=== PATIENT | female | born 1995 | race Hispanic/Latino ===

== ENCOUNTER 2020-10-31 14:21 | Outpatient (CLI) | payer OTHER | END 2020-10-31 14:22 | disposition home or self-care (01) | LOC: BICCT 14:21 | PROVIDERS: ATTEND Family Medicine | DX: G40.209 Localization-related (focal) (partial) symptomatic epilepsy and epileptic syndromes with complex partial seizures, not intractable, without status epilepticus (principal) | CPT/HCPCS: 70450 ==

== ENCOUNTER 2020-11-13 17:30 | Outpatient (CLI) | payer OTHER | END 2020-11-13 17:31 | disposition home or self-care (01) | LOC: SLEEPLAB 17:30 | PROVIDERS: ATTEND Family Medicine | DX: G47.33 Obstructive sleep apnea (adult) (pediatric) (principal); R53.83 Other fatigue; G31.84 Mild cognitive impairment of uncertain or unknown etiology; K21.9 Gastro-esophageal reflux disease without esophagitis; G47.00 Insomnia, unspecified; E66.9 Obesity, unspecified; Z68.38 Body mass index [BMI] 38.0-38.9, adult | CPT/HCPCS: 95806 ==

== ENCOUNTER 2020-11-19 07:27 | Outpatient (CLI) | payer OTHER | END 2020-11-19 07:28 | disposition home or self-care (01) | LOC: BICULT 07:27 | PROVIDERS: ATTEND Family Medicine | DX: R74.01 Elevation of levels of liver transaminase levels (principal); K76.0 Fatty (change of) liver, not elsewhere classified; K82.8 Other specified diseases of gallbladder | CPT/HCPCS: 76700 ==

== ENCOUNTER 2021-01-25 12:36 | Outpatient (CLI) | payer OTHER | END 2021-01-25 12:37 | disposition home or self-care (01) | LOC: SCSMRI 12:36 | PROVIDERS: ATTEND Nurse Practitioner Acute Care | DX: M79.602 Pain in left arm (principal); M43.9 Deforming dorsopathy, unspecified | CPT/HCPCS: 72156 ==

== ENCOUNTER 2021-08-22 14:59 | Outpatient (CLI) | payer BC | END 2021-08-22 15:00 | disposition home or self-care (01) | LOC: BICMRI 14:59 → SCSMRI 15:00 | PROVIDERS: ATTEND Family Medicine | DX: M24.9 Joint derangement, unspecified (principal) ==

== ENCOUNTER 2021-09-26 12:23 | Outpatient (CLI) | payer BC ==
[~2021-09-26 12:23] MED LIST: Magnevist 469MG/ML 20 ML VIAL ONE
== END 2021-09-26 12:24 | disposition home or self-care (01) ==
LOC: MRI 12:23
PROVIDERS: ATTEND Psychiatry & Neurology Neurology
DX: G43.009 Migraine without aura, not intractable, without status migrainosus (principal); R56.9 Unspecified convulsions; R94.01 Abnormal electroencephalogram [EEG]
CPT/HCPCS: 70553; 95816; 95957; A9579

== ENCOUNTER 2021-12-23 09:33 | Outpatient (CLI) | payer BC ==
[2021-12-23] MEDS ORDERED: Lidocaine 1% PF 5 ML VIAL ONE (10:00)
[2021-12-23] MEDS ORDERED: Gadobenate Dimeglumine 529 MG/1 ML (20ML VIAL) ONE (10:00)
[2021-12-23] MEDS ORDERED: Iopamidol 300 61% 50 ML VIAL FS ONE (10:00)
[2021-12-23] MEDS ORDERED: EPINEPHrine 1 MG/ML VIAL ONE (10:00)
== END 2021-12-23 09:34 | disposition home or self-care (01) ==
LOC: RAD 09:33
PROVIDERS: ATTEND Family Medicine Sports Medicine
DX: M25.511 Pain in right shoulder (principal)
CPT/HCPCS: 23350; A9577; J0171; Q9967

== ENCOUNTER 2022-01-13 12:26 | Outpatient (CLI) | payer BC | END 2022-01-13 12:27 | disposition home or self-care (01) | LOC: EEG 12:26 | PROVIDERS: ATTEND Psychiatry & Neurology Neurology | DX: G40.209 Localization-related (focal) (partial) symptomatic epilepsy and epileptic syndromes with complex partial seizures, not intractable, without status epilepticus (principal) | CPT/HCPCS: 95816; 95957 ==

== ENCOUNTER 2022-10-09 09:08 | Outpatient (CLI) | payer BC | END 2022-10-09 09:09 | disposition home or self-care (01) | LOC: SCSMRI 09:08 | PROVIDERS: ATTEND Surgery Surgery of the Hand | DX: M51.16 Intervertebral disc disorders with radiculopathy, lumbar region (principal); M47.26 Other spondylosis with radiculopathy, lumbar region; M67.431 Ganglion, right wrist | CPT/HCPCS: 72148 ==

== ENCOUNTER 2022-11-12 15:29 | Outpatient (CLI) | payer BC ==
[2022-11-12 16:42] LABS: Pregnancy Test - Urine (BHCG) Negative (Negative); Pregu Control Background? CLEAR/WHITE (CLR/WHITE); Pregu Control Bar Appear? YES (CONTROL BAR); Specific Gravity 1.015 (1.002-1.036)
[2022-11-12 16:56] LABS: Anion Gap 11 mmol/L (10-20); BUN (Urea Nitrogen) 9 mg/dL (7.0-18.7); Calc. Creatinine Clearance 0 mL/min (70-130); Calcium 9.6 mg/dL (7.8-10.44); Carbon Dioxide 23 mmol/L (22-29); Chloride 109 mmol/L (98-107); Estimated GFR 107; Glucose 90 mg/dL (70-105); Potassium 4.2 mmol/L (3.5-5.1); Sodium 139 mmol/L (136-145)
== END 2022-11-12 15:30 | disposition home or self-care (01) ==
LOC: LABBT 15:29
PROVIDERS: ATTEND Surgery Surgery of the Hand
DX: Z01.812 Encounter for preprocedural laboratory examination (principal); M67.439 Ganglion, unspecified wrist
CPT/HCPCS: 80048; 81025

== ENCOUNTER 2022-11-19 10:17 | Day surgery (SDC) | payer BC ==
[2022-11-12 15:51] VITALS: BMI 32.1
[2022-11-19] MEDS ORDERED: Acetaminophen 500 MG TAB ONE (11:11)
[2022-11-19] MEDS ORDERED: EPINEPHrine 1 MG/ML AMP ONE (11:14)
[2022-11-19] MEDS ORDERED: Lidocaine 1% (PF) 30 ML VIAL ONE (11:14)
[2022-11-19] MEDS ORDERED: Bupivacaine 0.25% HCL 30 ML VIAL ONE (11:14)
[2022-11-19] MEDS ORDERED: Sodium Chloride 0.9% 100 ML ONE (11:19)
[2022-11-19] MEDS ORDERED: CEFAZOLIN 2 GM VIAL ONE (11:19)
[2022-11-19] MEDS ORDERED: Midazolam HCl 2 mg/2 ml Vial ONE ×2 (12:12→12:24)
[2022-11-19] MEDS ORDERED: fentaNYL PF 100 MCG/2 ML SYRINGE ONE (12:12)
[2022-11-19] MEDS ORDERED: Dexamethasone 20 MG/5 ML VIAL ONE (12:40)
[2022-11-19] MEDS ORDERED: Lidocaine 1% PF 5 ML VIAL ONE (12:40)
[2022-11-19] MEDS ORDERED: Ondansetron PF 4 MG/2 ML Vial ONE (12:40)
[2022-11-19] MEDS ORDERED: PROPOFOL 200 MG/20 ML VIAL ONE (12:40)
[2022-11-19] MEDS ORDERED: fentaNYL 50 mcg/mL 1 mL Vial ONE (13:55)
[2022-11-19] MEDS ORDERED: HYDROcodone/Acetaminophen 5/325 mg Tablet ONE (15:18)
== END 2022-11-19 15:30 | disposition home or self-care (01) ==
LOC: SDC 10:17
PROVIDERS: ATTEND Surgery Surgery of the Hand
PROC: 0LB50ZZ Excision of Right Lower Arm and Wrist Tendon, Open Approach (ICD-10-PCS; principal; 2022-11-19)
DX: M67.431 Ganglion, right wrist (principal); Z79.899 Other long term (current) drug therapy; Q79.8 Other congenital malformations of musculoskeletal system; G40.909 Epilepsy, unspecified, not intractable, without status epilepticus; K21.9 Gastro-esophageal reflux disease without esophagitis; G47.00 Insomnia, unspecified
CPT/HCPCS: 88304; J0171; J1100; J2001; J2250; J2405; J2704; J3010; J3490; S0020

== ENCOUNTER 2022-12-19 08:09 | Outpatient (CLI) | payer BC | END 2022-12-19 08:10 | disposition home or self-care (01) | LOC: BICRAD 08:09 | PROVIDERS: ATTEND Neurological Surgery | DX: M54.50 Low back pain, unspecified (principal) | CPT/HCPCS: 72120 ==

== ENCOUNTER 2023-07-15 07:49 | Outpatient (CLI) | payer BC | END 2023-07-15 07:50 | disposition home or self-care (01) | LOC: BICRAD 07:49 | PROVIDERS: ATTEND Internal Medicine | DX: M25.511 Pain in right shoulder (principal) ==

== ENCOUNTER 2023-12-22 14:22 | Outpatient (CLI) | payer BC | END 2023-12-22 14:23 | disposition home or self-care (01) | LOC: CT 14:22 | PROVIDERS: ATTEND Internal Medicine | DX: N20.0 Calculus of kidney (principal); N94.89 Other specified conditions associated with female genital organs and menstrual cycle | CPT/HCPCS: 74178 ==

== ENCOUNTER 2024-12-19 19:12 | Emergency (ER) | payer BC, SELFPAY ==
[2024-12-19 19:56] LABS: #Basophils 0.04 10x3/uL (0.0-0.2); #Eosinophils 0.08 10x3/uL (0.0-0.7); #Monocytes 0.57 10x3/uL (0.11-0.59); #Neutrophils 6.54 10x3/uL (1.40-6.50); %Basophils 0.4 % (0.0-1.0); %Eosinophils 0.8 % (0.0-10.0); %Lymphocytes 28.0 % (21.0-51.0); %Monocytes 5.6 % (0.0-10.0); %Neutrophils 64.8 % (42.0-75.0); Hematocrit 41.4 % (36.0-47.0); Hemoglobin 13.5 g/dL (12.0-16.0); Mean Corpuscular Hemoglobin 28.6 pg (27.0-31.0); Mean Corpuscular Volume 87.7 fL (78.0-98.0); Platelet Count 350 10x3/uL (130-400); Red Blood Cell (RBC) Count 4.72 mill/uL (4.20-5.40); White Blood Cell (WBC) Count 10.10 10x3/uL (4.8-10.8)
[2024-12-19 20:22] LABS: ALT (SGPT) 38 U/L (Less than 34); AST (SGOT) 37 U/L (11-34); Albumin 4.2 g/dL (3.1-4.5); Alkaline Phosphatase 84 U/L (40-110); Anion Gap 14 mmol/L (10-20); BUN (Urea Nitrogen) 9 mg/dL (7.0-18.7); Bilirubin, Total 0.2 mg/dL (0.3-1.2); Calc. Creatinine Clearance 0 mL/min (70-130); Calcium 9.3 mg/dL (7.8-10.44); Carbon Dioxide 23 mmol/L (22-29); Chloride 104 mmol/L (98-107); Globulin 3.2 g/dL (2.4-3.5); Glucose 92 mg/dL (70-105); Potassium 3.9 mmol/L (3.5-5.1); Sodium 137 mmol/L (136-145)
[2024-12-19] MEDS ORDERED: Ketorolac Tromethamine 30 MG (1 mL) VIAL ONE (21:38)
[2024-12-19] MEDS ORDERED: levETIRAcetam 500 MG (5 mL) VIAL ONE (21:38)
== END 2024-12-19 22:30 | disposition home or self-care (01) ==
LOC: ERS 19:12
DX: T42.6X6A Underdosing of other antiepileptic and sedative-hypnotic drugs, initial encounter (principal); G40.909 Epilepsy, unspecified, not intractable, without status epilepticus; Z86.73 Personal history of transient ischemic attack (TIA), and cerebral infarction without residual deficits; Z79.899 Other long term (current) drug therapy
CPT/HCPCS: 36415; 80053; 80177; 85025; 96374; 96375; J1885; J1953